=== PATIENT | male | born 2000 | race Caucasian/White ===

== ENCOUNTER 2019-07-08 10:13 | Emergency (ER) | payer SELFPAY ==
[2019-07-08] MEDS ORDERED: LIDOCAINE 1% W/EPI 1:100,000 MDV 20 ML VIAL ONE (11:10)
--- NOTE | 2019-07-08 11:57 | EDPHYS ---
Physician Documentation [facility] Name: Puneet Pennington Age: 19 yrs Sex: Male : 2000 Arrival Date: 07/08/2019 Time: 10:21 Bed 25 Private MD: ED Physician Tim Martinez HPI: 07/08 11:46 This 19 yrs old Male presents to ER via Ambulatory with complaints of Abscess.ps1 11:46 patient noticed significant pain yesterday from pilonidal abscess. Patient has a 8cm ps1 pilonidal abscess that appears fluctuant and edematous. No surrounding cellulitis. Hirsute male. No history of previous problems. Pain is moderate to severe with sitting. . Historical: - Allergies: 10:26 No Known Allergies; iw - Home Meds: 10:26 None [Active]; iw - PMHx: 10:26 None; iw - PSHx: 10:26 None; iw - Immunization history:: Adult Immunizations not up to date. - Social history:: Smoking status: Patient/guardian denies using tobacco. - Ebola Screening: : Patient negative for fever greater than or equal to 101.5 degrees Fahrenheit, and additional compatible Ebola Virus Disease symptoms Patient denies exposure to infectious person Patient denies travel to an Ebola-affected area in the 21 days before illness onset No symptoms or risks identified at this time. ROS: 11:46 Constitutional: Negative for fever, chills, and weight loss, Eyes: Negative for injury, ps1 pain, redness, and discharge, Cardiovascular: Negative for chest pain, palpitations, and edema, Respiratory: Negative for shortness of breath, cough, wheezing, and pleuritic chest pain, Abdomen/GI: Negative for abdominal pain, nausea, vomiting, diarrhea, and constipation, MS/Extremity: Negative for injury and deformity, Neuro: Negative for headache, weakness, numbness, tingling, and seizure. 11:46 Skin: Positive for abscess. Exam: 11:46 Constitutional: This is a well developed, well nourished patient who is awake, alert, ps1 and in no acute distress. Head/Face: Normocephalic, atraumatic. Eyes: Pupils equal round and reactive to light, extra-ocular motions intact. Lids and lashes normal. Conjunctiva and sclera are non-icteric and not injected. Chest/axilla: Normal chest wall appearance and motion. Nontender with no deformity. No lesions are appreciated. Cardiovascular: Regular rate and rhythm. No gallops, murmurs, or rubs. Normal PMI, no JVD. No pulse deficits. Respiratory: Lungs have equal breath sounds bilaterally, clear to auscultation and percussion. No rales, rhonchi or wheezes noted. No increased work of breathing, no retractions or nasal flaring. Abdomen/GI: Soft, non-tender, with normal bowel sounds. No distension or tympany. No guarding or rebound. No evidence of tenderness throughout. MS/ Extremity: Pulses equal, no cyanosis. Neurovascular intact. Full, normal range of motion. Neuro: Awake and alert, GCS 15, oriented to person, place, time, and situation. Cranial nerves II-XII grossly intact. Sensory grossly intact. 11:46 Skin: abscess, that is large, of the coccyx, with fluctuance, with induration, with pointing, consistent with infected pilonidal abscess. Vital Signs: 10:26 BP 146 / 92; Pulse 100; Resp 16; Temp 98.4; Pulse Ox 99% on R/A; Weight 92.53 kg; iw Height 5 ft. 8 in. (172.72 cm); Pain 8/10; 11:50 BP 136 / 88; Pulse 97; Resp 17 S; Pulse Ox 100% on R/A; ca1 10:26 Body Mass Index 31.02 (92.53 kg, 172.72 cm) iw Procedures: 11:46 I \T\ D: Incision and drainage was performed for an abscess of the pilonidal cyst ps1 Anesthetized with 10 ml's 1% Lidocaine w/ Epi. Incised with #11 blade. Drained large amount purulent fluid. Loculations removed. Abscess cavity explored. Packed with sterile gauze, Dressing: sterile 4x4 gauze, the patient tolerated the procedure well. MDM: 11:23 Patient medically screened. snw 11:46 Data reviewed: vital signs, nurses notes, and as a result, I will discharge patient. ps1 Counseling: I had a detailed discussion with the patient and/or guardian regarding: the historical points, exam findings, and any diagnostic results supporting the discharge/admit diagnosis, the need for outpatient follow up, a general surgeon, to return to the emergency department if symptoms worsen or persist or if there are any questions or concerns that arise at home. 07/08 11:06 Order name: Dressing - Wound; Complete Time: 11: ca1 07/08 11:06 Order name: Gloves, Sterile; Complete Time: 11:06 ca1 07/08 11:06 Order name: I\T\D Setup; Complete Time: 11:06 ca1 07/08 11:06 Order name: Scalpel; Complete Time: 11: ca1 Administered Medications: 11:30 Drug: Lidocaine-Epinephrine -1%: (1:100,000) 1 amp {Note: By Dr. Martinez.} Volume: 20 ca1 ml; Route: Infiltration; 12:06 Drug: TORadol - Ketorolac 30 mg Route: IM; Site: right gluteus; mg2 12:06 Follow up: Response: No adverse reaction; Medication administered at discharge. mg2 Disposition: 07/08/19 11:56 Discharged to Home. Impression: Pilonidal cyst with abscess. - Condition is Stable. - Discharge Instructions: Pilonidal Cyst. - Prescriptions for Keflex 500 mg Oral Capsule - take 1 capsule by ORAL route every 8 hours for 10 days; 30 capsule. Tylenol- Codeine #3 300-30 mg Oral Tablet - take 2 tablet by ORAL route every 6 hours As needed; 30 tablet. Zofran 4 mg Oral Tablet - take 1 tablet by ORAL route every 12 hours As needed; 20 tablet. Bactrim DS 800- 160 mg Oral Tablet - take 1 tablet by ORAL route every 12 hours for 10 days; 20 tablet. - Medication Reconciliation Form, Thank You Letter, Antibiotic Education, Prescription Opioid Use, Work release form form. - Follow up: Tomy Pike MD; When: 48 Hours; Reason: If symptoms return, Further diagnostic work-up, Recheck today's complaints, Continuance of care. - Problem is new. - Symptoms have improved. Signatures: Tawana Hurst, MARITIME PILOT-C MARITIME PILOT-Csnw Yudy Garcia, RN RN iw Tim Martinez MD MD ps1 Zoltan Mccarthy RN RN mg2 Lilia Flowers RN RN ca1 Corrections: (The following items were deleted from the chart) 12:12 11:56 07/08/2019 11:56 Discharged to Home. Impression: Pilonidal cyst with abscess. mg2 Condition is Stable. Forms are Medication Reconciliation Form, Thank You Letter, Antibiotic Education, Prescription Opioid Use. Follow up: Dr. Tomy Pike; When: 48 Hours; Reason: If symptoms return, Further diagnostic work-up, Recheck today's complaints, Continuance of care. Problem is new. Symptoms have improved. ps1
--- NOTE | 2019-07-08 11:57 | ER ---
Nurse's Notes [facility] Name: Puneet Pennington Age: 19 yrs Sex: Male : 2000 Arrival Date: 07/08/2019 Time: 10:21 Bed 25 Private MD: Diagnosis: Pilonidal cyst with abscess Presentation: 07/08 10:25 Presenting complaint: Patient states: has ingrown hair at top of buttocks, this one is iw bigger than usual. Transition of care: patient was not received from another setting of care. Onset of symptoms was July 05, 2019. Risk Assessment: Do you want to hurt yourself or someone else? Patient reports no desire to harm self or others. Initial Sepsis Screen: Does the patient meet any 2 criteria? No. Patient's initial sepsis screen is negative. Does the patient have a suspected source of infection? No. Patient's initial sepsis screen is negative. Care prior to arrival: None. 10:25 Method Of Arrival: Ambulatory iw 10:25 Acuity: LEANDER 3 iw Historical: - Allergies: 10:26 No Known Allergies; iw - Home Meds: 10:26 None [Active]; iw - PMHx: 10:26 None; iw - PSHx: 10:26 None; iw - Immunization history:: Adult Immunizations not up to date. - Social history:: Smoking status: Patient/guardian denies using tobacco. - Ebola Screening: : Patient negative for fever greater than or equal to 101.5 degrees Fahrenheit, and additional compatible Ebola Virus Disease symptoms Patient denies exposure to infectious person Patient denies travel to an Ebola-affected area in the 21 days before illness onset No symptoms or risks identified at this time. Screenin:46 Abuse screen: Denies threats or abuse. Denies injuries from another. Nutritional ca1 screening: No deficits noted. Tuberculosis screening: No symptoms or risk factors identified. Fall Risk None identified. Assessment: 10:46 General: Appears in no apparent distress. comfortable, Behavior is calm, cooperative, ca1 appropriate for age. Pain: Complains of pain in coccyx Pain currently is 10 out of 10 on a pain scale. Pain began 1 day ago. Neuro: Level of Consciousness is awake, alert, obeys commands, Oriented to person, place, time, situation, Appropriate for age. Derm: Skin is intact, is healthy with good turgor, Skin is pink, warm \T\ dry. Abscess located on coccyx is half dollar sized, has no drainage, is hot to touch, is raised. Musculoskeletal: Circulation, motion, and sensation intact. Capillary refill < 3 seconds. 11:50 Reassessment: Patient appears in no apparent distress at this time. Patient and/or ca1 family updated on plan of care and expected duration. Pain level reassessed. Patient is alert, oriented x 3, equal unlabored respirations, skin warm/dry/pink. Vital Signs: 10:26 BP 146 / 92; Pulse 100; Resp 16; Temp 98.4; Pulse Ox 99% on R/A; Weight 92.53 kg; iw Height 5 ft. 8 in. (172.72 cm); Pain 8/10; 11:50 BP 136 / 88; Pulse 97; Resp 17 S; Pulse Ox 100% on R/A; ca1 10:26 Body Mass Index 31.02 (92.53 kg, 172.72 cm) iw ED Course: 10:21 Patient arrived in ED. mr 10:24 Tim Martinez MD is Attending Physician. ps1 10:26 Triage completed. iw 10:26 Arm band placed on. iw 10:32 Lilia Flowers, MICHAEL is Primary Nurse. ca1 10:46 Patient has correct armband on for positive identification. Placed in gown. Bed in low ca1 position. Call light in reach. Side rails up X 1. Pulse ox on. NIBP on. Warm blanket given. 10:46 Patient did not have IV access during this emergency room visit. ca1 11:47 Assist provider with I \T\ D: of an abscess on Sacral area Set up I\T\D tray. Performed by ca 1 Tim Martinez MD Wound packed. iodoform gauze, Dressing with Neosporin and 4X4s, tape Patient tolerated well. 11:56 Tomy Pike MD is Referral Physician. ps1 Administered Medications: 11:30 Drug: Lidocaine-Epinephrine -1%: (1:100,000) 1 amp {Note: By Dr. Martinez.} Volume: 20 ca1 ml; Route: Infiltration; 12:06 Drug: TORadol - Ketorolac 30 mg Route: IM; Site: right gluteus; mg2 12:06 Follow up: Response: No adverse reaction; Medication administered at discharge. mg2 Outcome: 11:56 Discharge ordered by . ps1 12:12 Patient left the ED. mg2 12:12 Discharged to home ambulatory. mg2 12:12 Condition: stable 12:12 Discharge instructions given to patient, Instructed on discharge instructions, follow up and referral plans. medication usage, wound care, Demonstrated understanding of instructions, follow-up care, medications, Prescriptions given X 4. Signatures: Sophia Polo mr Yudy Garcia RN RN iw Tim Martinez MD MD ps1 Zoltan Mccarthy RN RN mg2 Lilia Flowers RN RN ca1
[2019-07-08] MEDS ORDERED: KETOROLAC 30 MG/ML INJ ONE (12:04)
[2019-07-08 12:27] VITALS: TEMP 98.4
[2019-07-08 12:28] VITALS: BP 136/88; O2SAT 100
== END 2019-07-08 12:12 | disposition home or self-care (01) ==
LOC: ER 10:13
PROC: 0H98XZZ Drainage of Buttock Skin, External Approach (ICD-10-PCS; principal; 2019-07-08)
DX: L05.01 Pilonidal cyst with abscess (principal)
CPT/HCPCS: 96372; 99284